=== PATIENT | female | born 1990 | race Caucasian/White ===

== ENCOUNTER 2022-05-27 10:06 | Inpatient (IN) | payer OTHER ==
[2022-05-26 12:31] LABS: Hemoglobin 11.4 g/dL (12.0-15.5); Platelet Count 286 10x3/uL (150-450)
[2022-05-26 13:14] LABS: HBSAg Index 0.14 S/CO (0-0.99); Hep B Surf Ag Non-Reactive S/CO (NonReactive)
[2022-05-26 13:15] LABS: Syphilis Antibody Nonreactive (Nonreactive); Syphilis Antibody Index 0.03 S/CO (<1.00 Non-Reactive)
[~2022-05-27 10:06] MED LIST: Bicitra 30 ML UDCUP PO PRN; CEFAZOLIN 2 GM in Sodium Chloride 0.9% 100 ML IVPB SCH; Famotidine/PF 20 mg/2ml Vial SLOW IVP PRN; Lactated Ringer's 1,000 ML IV SCH; NS w/ Oxytocin 30 units 500 ML IV SCH; Ondansetron PF 4 MG/2 ML Vial IVP PRN; Promethazine HCl 25 MG/ML VIAL IM PRN; hydrALAZINE 20 MG/ML VIAL SLOW IVP PRN
[2022-05-27] MEDS ORDERED: Famotidine/PF 20 mg/2ml Vial ONE (10:53)
[2022-05-27] MEDS ORDERED: CEFAZOLIN 2 GM VIAL ONE (10:53)
[2022-05-27] MEDS ORDERED: Sodium Chloride 0.9% 100 ML ONE (10:53)
[2022-05-27] MEDS ORDERED: HYDROmorphone 2 MG/ML VIAL SLOW IVP PRN (11:38)
[2022-05-27] MEDS ORDERED: Moisturizing Cream (Eucerin) 113 GM JAR TOP PRN (11:38)
[2022-05-27] MEDS ORDERED: Promethazine HCl 25 MG/ML VIAL IM PRN (11:38)
[2022-05-27] MEDS ORDERED: Promethazine HCl 25 MG SUPP PR PRN (11:38)
[2022-05-27] MEDS ORDERED: Naloxone HCl 0.4 mg/ml Vial IV PRN (11:38)
[2022-05-27] MEDS ORDERED: Naloxone HCl 0.4 mg/ml Vial IVP PRN ×2 (11:38)
[2022-05-27] MEDS ORDERED: Ketorolac Tromethamine 30 MG/ML VIAL IVP PRN (11:38)
[2022-05-27] MEDS ORDERED: Ondansetron HCl/PF 4 MG/2 ML Vial IVP PRN (11:38)
[2022-05-27] MEDS ORDERED: Fentanyl 100 MCG/2 ML VIAL SLOW IVP PRN (11:38)
[2022-05-27] MEDS ORDERED: Meperidine HCl/PF 25 MG/ML VIAL SLOW IVP PRN (11:38)
[2022-05-27] MEDS ORDERED: diphenhydrAMINE 50 MG/ML VIAL IVP PRN (11:38)
[2022-05-27] MEDS ORDERED: Ondansetron PF 4 MG/2 ML Vial IVP PRN ×2 (11:38→15:25)
[2022-05-27 11:39] VITALS: BMI 34.3
[2022-05-27] MEDS ORDERED: Ketorolac Tromethamine 30 MG/ML VIAL IVP SCH (11:45)
[2022-05-27] MEDS ORDERED: Communication Order-Pharmacy FS SCH (11:45)
[2022-05-27] MEDS ORDERED: Morphine PF 10 MG/10 ML VIAL ONE (11:51)
[2022-05-27] MEDS ORDERED: Fentanyl 100 MCG/2 ML VIAL ONE (11:51)
[2022-05-27 12:35] LABS: SARS-CoV-2 NAA Rapid Test Not Detected (NotDetected)
[2022-05-27] MEDS ORDERED: Oxytocin 10 UNITS/ML VIAL ONE (12:44)
[2022-05-27] MEDS ORDERED: Phenylephrine 10 MG/ML VIAL ONE (12:44)
[2022-05-27] MEDS ORDERED: Dexamethasone 4 mg/ml Vial ONE (12:44)
[2022-05-27] MEDS ORDERED: Ondansetron PF 4 MG/2 ML Vial ONE (12:44)
[2022-05-27] MEDS ORDERED: NS w/ Oxytocin 30 units 500 ML ONE (14:24)
[2022-05-27] MEDS ORDERED: Bisacodyl 10 MG SUPP PR PRN (15:25)
[2022-05-27] MEDS ORDERED: diphenhydrAMINE 25 MG CAP PO PRN (15:25)
[2022-05-27] MEDS ORDERED: Boostrix 0.5 ML (Tdap) VIAL (>/=7 yrs of age) IM ONE (15:25)
[2022-05-27] MEDS ORDERED: HYDROcodone/Acetaminophen 5/325 mg Tablet PO PRN ×2 (15:25)
[2022-05-27] MEDS ORDERED: hydrALAZINE 20 MG/ML VIAL SLOW IVP PRN (15:25)
[2022-05-27] MEDS ORDERED: Lanolin Ointment 7 GM TUBE TOP PRN (15:25)
[2022-05-27] MEDS ORDERED: Simethicone Chewable 80 MG TAB PO PRN (15:25)
[2022-05-27] MEDS ORDERED: NS w/ Oxytocin 30 units 500 ML IV SCH (15:25)
[2022-05-27] MEDS: Ibuprofen 800 MG TAB PO SCH ×2 (15:59→23:26)
[2022-05-27] MEDS: Docusate 100 MG CAP PO SCH (21:15)
[2022-05-27] MEDS: Ferrous Sulfate 325 MG TAB PO SCH (21:16)
[2022-05-28 04:12] LABS: Hemoglobin 10.3 g/dL (12.0-15.5); Mean Corpuscular HGB CONC 32.3 g/dL (32.0-36.0); Mean Corpuscular Hemoglobin 29.9 pg (27.0-33.0); Mean Corpuscular Volume 92.5 fl (81.6-98.3); Mean Platelet Volume 9.5 fl (7.4-10.4); Platelet Count 258 10x3/uL (150-450); RBC Distribution Width 14.8 % (11.5-14.5); Red Blood Cell (RBC) Count 3.45 10x6/uL (3.90-5.03); White Blood Cell (WBC) Count 12.7 10x3/uL (3.5-10.5)
[2022-05-28] MEDS: Ibuprofen 800 MG TAB PO SCH ×3 (08:51→21:52)
[2022-05-28] MEDS: Prenatal Vitamin 1 TAB PO SCH (08:51)
[2022-05-28] MEDS: Docusate 100 MG CAP PO SCH ×2 (08:51→21:52)
[2022-05-28] MEDS: Ferrous Sulfate 325 MG TAB PO SCH ×2 (08:52→21:52)
[2022-05-29] MEDS: Ibuprofen 800 MG TAB PO SCH (06:27)
[2022-05-29] MEDS: Ferrous Sulfate 325 MG TAB PO SCH (07:25)
[2022-05-29 08:43] VITALS: BP 112/66; TEMP 97.9
[2022-05-29] MEDS: Docusate 100 MG CAP PO SCH (10:11)
[2022-05-29] MEDS: Prenatal Vitamin 1 TAB PO SCH (10:11)
== END 2022-05-29 12:16 | disposition home or self-care (01) | DRG 788 ==
LOC: CSHLD 10:06 → CSHPP 15:27
PROVIDERS: ADMIT Obstetrics & Gynecology; ATTEND Obstetrics & Gynecology
PROC: 10D00Z1 Extraction of Products of Conception, Low, Open Approach (ICD-10-PCS; principal; 2022-05-27)
DX: O34.211 Maternal care for low transverse scar from previous cesarean delivery (principal); Z3A.39 39 weeks gestation of pregnancy; Z37.0 Single live birth; Z20.822 Contact with and (suspected) exposure to COVID-19; Z79.82 Long term (current) use of aspirin; Z91.013 Allergy to seafood; Z91.040 Latex allergy status; O99.824 Streptococcus B carrier state complicating childbirth; O36.63X0 Maternal care for excessive fetal growth, third trimester, not applicable or unspecified; O40.3XX0 Polyhydramnios, third trimester, not applicable or unspecified; Z91.018 Allergy to other foods; F41.9 Anxiety disorder, unspecified; F32.A Depression, unspecified; O99.344 Other mental disorders complicating childbirth
CPT/HCPCS: 36415; 51702; 85014; 85018; 85027; 85049; 86780; 86850; 86900; 86901; 87340; J1100; J2274; J2370; J2405; J2590; J3010; U0002